=== PATIENT | male | born 1965 | race Caucasian/White ===

== ENCOUNTER → 2017-02-08 | Day surgery (SDC) | payer OTHER ==
[~2017-02-08] MED LIST: IV RINGERS,LACTATED 1000ML 1,000 ML IV SCH; LEVO25TA4 PO; LIDOCAINE 1% 1 ML SYRINGE. ID PRN; LISI1TAB3 PO; METO25TA4 PO; MIDAZOLAM HCL/PF 2 MG/2 ML VIAL. IV PRN; PROPOFOL 40 ML IV ONE; fentaNYL PF VIAL 100 MCG/2 ML VIAL IV PRN
[2017-02-08 14:55] VITALS: BP 116/79
--- NOTE | 2017-02-12 13:32 | PATHOLOGY ---
PATHOLOGY REPORT * * * * * * * * FINAL DIAGNOSIS: Colorectal biopsy, rectal polyp: - Hyperplastic polyp with coagulation artifact. COMMENT: There are no adenomatous changes or evidence of malignancy. (JPM:; d/t: 02/12/17) REPORT ELECTRONICALLY SIGNED BY: Mynor Reed M.D. DATE/TIME: 02/12/2017 13:24 * * * * * * * * GROSS PATHOLOGY: The specimen is received in formalin and is designated "rectal poly." This consists of a small segment of nj tissue measuring 0.1-0.2 cm in greatest dimension. This is submitted for microscopy as A1. (JPM:mgr; d/t: 02/12/17) INITIAL CPT CODE(S): A; 08322 Professional services performed by [facility] [place] [address] Technical services performed by [facility] at [address] [place] [address]. SPECIMEN(S) RECEIVED: A.Rectal polyp biopsy CLINICAL HISTORY: Screening PATIENT: MYNOR ACEVEDO /AGE: 1007/13/1965 (Age: 51) PATIENT #: [id number] ALT CASE #: SPECIMEN COLLECTION DATE: 02/08/2017 SPECIMEN RECEIVED DATE: 02/09/2017 [facility] - [address] [place] [address] - PHONE: [phone] * * * END OF REPORT * * *
== END | disposition home or self-care (01) ==
LOC: ENDOS 12:58
PROVIDERS: ATTEND Internal Medicine Gastroenterology
DX: K62.1 Rectal polyp (principal); K64.0 First degree hemorrhoids; I10 Essential (primary) hypertension; E03.9 Hypothyroidism, unspecified; Z82.49 Family history of ischemic heart disease and other diseases of the circulatory system; Z83.3 Family history of diabetes mellitus; Z72.89 Other problems related to lifestyle; F17.200 Nicotine dependence, unspecified, uncomplicated
CPT/HCPCS: 45385; J2704; 88305

== ENCOUNTER → 2021-04-01 | Day surgery (SDC) | payer OTHER ==
[~2021-04-01] VITALS: Ht 182.9 cm; Wt 183.0 kg
[~2021-04-01] MED LIST changes: +GABA600T7 PO; -LIDOCAINE 1% 1 ML SYRINGE. ID PRN; +LIDOCAINE 2% PF 5 ML VIAL. ONE; +LISI1TAB23 PO; -LISI1TAB3 PO; +METF10007 PO; -MIDAZOLAM HCL/PF 2 MG/2 ML VIAL. IV PRN; +PROPOFOL 10 MG/ML (20ML) VIAL. IV ONE; -PROPOFOL 40 ML IV ONE; -fentaNYL PF VIAL 100 MCG/2 ML VIAL IV PRN
[2021-04-01 07:31] VITALS: BP 147/87
[2021-04-01 09:25] VITALS: BP 145/79
--- NOTE | 2021-04-05 14:10 | PATHOLOGY ---
[facility] Accession Number: [id number] . 01 Material submitted: . esophagus - DISTAL ESOPHAGEAL BIOPSY- REFLUX RULE OUT BARRETTS. Modifiers: distal . 01 Clinical history: . DYSPHAGIA EGD . 02 Diagnosis: Esophageal biopsies, distal esophagus: - Reflux esophagitis. (JPM:dwain; 04/05/2021) S 04/05/2021 0718 Local . 02 Comment: Sections of the distal esophageal biopsy reveal segments of hyperplastic squamous mucosa with focal contiguous segments of gastric mucosa showing moderate active chronic inflammation. The findings are consistent with reflux esophagitis. There is no evidence of Clinton's change, dysplasia, or malignancy. (JPM:dwain; 04/05/2021) . 02 Electronically signed: . Flako Reed MD, Pathologist NPI- [id number] . 01 Gross description: . Received in formalin labeled "Flako Menendez, distal esophageal BX reflux rule out Clinton's" are multiple nj-brown soft tissue fragments measuring in aggregate 1.0 x 0.9 x 0.1 cm. The specimen is submitted entirely in A1. [place] [place]21[place] [facility] 04/02/2021 1031 Local . 02 Pathologist provided ICD-10: K21.00 . 02 CPT . 702492 Specimen Comment: A courtesy copy of this report has been sent to [phone], [phone] Specimen Comment: [id number] Specimen Comment: Report sent to / ROBERT Performed at: 01 [facility] [address], [place], [place] [id number] MD Noe Thorne MD Phone: [phone] Performed at: 02 [facility] [address] [place], [place] [id number] MD Flako Reed MD Phone: [phone]
== END | disposition home or self-care (01) ==
LOC: SURG 07:13
PROVIDERS: ATTEND Internal Medicine Gastroenterology
DX: R13.10 Dysphagia, unspecified (principal); K21.00 Gastro-esophageal reflux disease with esophagitis, without bleeding; K31.89 Other diseases of stomach and duodenum; E66.9 Obesity, unspecified; I10 Essential (primary) hypertension; Z79.899 Other long term (current) drug therapy; Z98.890 Other specified postprocedural states; Z79.84 Long term (current) use of oral hypoglycemic drugs; Z72.89 Other problems related to lifestyle; Z20.822 Contact with and (suspected) exposure to COVID-19
CPT/HCPCS: 43239; 43450; 87426; J2704